=== PATIENT | male | born 1955 | race Caucasian/White ===

== ENCOUNTER → 2016-11-07 | Outpatient (CLI) | payer OTHER ==
[2016-11-07 11:47] LABS: CHOLESTEROL/HDL RATIO 2.8; PROSTATE SPECIFIC ANTIGEN 0.805 ng/ml (0.000-4.000)
== END | disposition home or self-care (01) ==
LOC: C.LABBC 08:34
PROVIDERS: ATTEND Family Medicine
DX: E78.5 Hyperlipidemia, unspecified (principal); N40.0 Benign prostatic hyperplasia without lower urinary tract symptoms; Z11.59 Encounter for screening for other viral diseases

== ENCOUNTER → 2016-11-13 | Outpatient (CLI) | payer OTHER | END | disposition home or self-care (01) | LOC: C.PATHSPEC 16:48 | PROVIDERS: ATTEND Dermatology | DX: L57.0 Actinic keratosis (principal) ==

== ENCOUNTER → 2017-02-06 | Outpatient (CLI) | payer OTHER | END | disposition home or self-care (01) | LOC: C.PATHSPEC 09:30 | PROVIDERS: ATTEND Dermatology | DX: D22.9 Melanocytic nevi, unspecified (principal) ==

== ENCOUNTER → 2017-05-23 | Outpatient (CLI) | payer OTHER | END | disposition home or self-care (01) | LOC: C.CPL 09:42 | PROVIDERS: ATTEND Orthopaedic Surgery | DX: Z01.810 Encounter for preprocedural cardiovascular examination (principal); S83.232A Complex tear of medial meniscus, current injury, left knee, initial encounter; X58.XXXA Exposure to other specified factors, initial encounter ==

== ENCOUNTER → 2017-10-07 | Outpatient (CLI) | payer OTHER | END | disposition home or self-care (01) | LOC: C.LAB 14:45 | PROVIDERS: ATTEND Family Medicine | DX: Z00.00 Encounter for general adult medical examination without abnormal findings (principal) ==

== ENCOUNTER 2024-10-14 08:12 | Inpatient (IN) ==
--- NOTE | 2024-10-08 13:10 | Anesthesiology Consultation ---
Date of Service October 08, 2024 Assessment & Plan (1) Encounter for pre-operative examination: - Infectious disease screening: Per assessment on 10/08/24- No known recent infectious disease contacts or current infectious disease symptoms. - Cardiology visit (12/29/23): "Paroxysmal AFib noted on outpatient monitor 2021. AFib burden appears to be low in general. Recent palpitations but very fleeting. Discussed repeating 30-day event monitor but he would like to hold off for now. Also discussed [employer] which may allow him to monitor this more regularly at home. He plans on looking into that. Tolerating beta- lashawn. Continue anticoagulation for stroke risk reduction.. Occasional brief palpitations described as skipped beats. Continue beta-lashawn. Etiology of the palpitations unclear as there were no reported symptoms while wearing previous monitor. Plan as above.. Syncope occurred in May of 2021 while fearing that his mother may pass away, standing outside of the hospital. May have been a vasovagal event. No recurrence. Monitor as above. Structurally normal heart based on [facility] echo report.. PVCs: Asymptomatic. No specific treatment necessary.. Follow-up in 1 year." - S/P colonoscopy (10/04/24): [facility] at [facility]. No issues noted per post-op anesthesia progress note. - General surgery visit (10/08/24): "..recently while undergoing a surveillance colonoscopy Dr. Granett was unable to get past the sigmoid colon due to a stricture. Subsequent CT scan also showed a [place]-colonic fistula and they also could not rule out an underlying mucosal neoplasm. He does occasionally have loose bowel movements but he is able to still have a solid normal bowel movement. Again his symptoms are relatively mild.. We had a long discussion today in the office regarding his options. The biggest concern is that we are unable to surveil his colon for colon masses and it is unclear on imaging if he could perhaps already have an underlying mucosal lesion. His symptoms are relatively mild at this point in time however I would still recommend that we resect his sigmoid colon which would also include the colocolonic fistula. We did discuss that because of this he would have a higher than normal chance of me needing to convert to an open procedure but we will start laparoscopically and make every attempt to perform the procedure minimally invasively.. We discussed he will need a preoperative colon prep as well as stop his Eliquis for 2 days prior.. We will proceed in the near future with laparoscopic/possible open sigmoid colectomy." Chart Review Chart Review: Acceptable Risk for Surgery (pending evaluation DOS) and Patient NOT seen in Pre Admission Testing History Surgery Operation Date: 10/14/24 09:45 Proposed Procedures p Laparoscopic, Possible Open, Sigmoid Colectomy - Brad Dsouza, DO Height/Weight Height: 6 ft 3 in Weight: 99.79 kg Allergies Allergy/AdvReac Type Severity Reaction Status Date / Time No Known Allergies Allergy Verified 10/14/24 08:32 Medications Home Medications Medication Instructions Recorded Confirmed Last Taken metoprolol succinate 25 mg 25 mg PO QAM #90 tabs 05/31/24 10/14/24 10/14/24 06:00 tablet,extended release 24 hr atorvastatin 20 mg tablet 20 mg PO HS 09/22/24 10/14/24 10/13/24 19:00 losartan 50 mg tablet 50 mg PO HS 09/22/24 10/14/24 10/13/24 19:00 apixaban 5 mg tablet (Eliquis) 5 mg PO BID #180 tabs 10/11/24 10/14/24 10/11/24 Past Medical History Medical History Actinic keratosis Atypical nevi BPH (benign prostatic hyperplasia) Hx Colonic fistula Diverticular disease Dyslipidemia Hypertension Paroxysmal atrial fibrillation Follows with [facility] cardio PVCs (premature ventricular contractions) Hx Tubular adenoma of colon Hx Past Family History Family History Father Heart disease Mother Dyslipidemia Brother Cerebral aneurysm Other No family history of adverse response to anesthesia Denies family history of Ovarian cancer Prostate cancer Myocardial infarction Breast cancer Colorectal cancer Past Surgical History Surgical History History of appendectomy History of arthroscopy left knee History of cataract surgery R/L History of colonoscopy (2024) History of total bilateral knee replacement Hx of tonsillectomy Hx of vasectomy S/P ablation of atrial fibrillation 15+ years ago S/P TURP 2014, 10/2023 Social History Smoking Status: Never smoker Do You Dip or Chew Tobacco: No (quit 2004; advised) Hx Alcohol Use: Yes Alcohol type: beer, wine and hard liquor alcohol intake frequency: 0-2 drinks per day Hx Substance Use: No substance use type: does not use Lab Results Anesthesia Preop Results Results Anesthesia Widget: WBC 5.37 K/ul (4.8-10.8) 10/08/24 Hgb 15.0 g/dl (14.0-18.0) 10/08/24 Hct 44.9 % (42.0-52.0) 10/08/24 Plt 205 K/uL (130-400) 10/08/24 Na 142 mmol/L (136-145) 10/08/24 K 4.1 mmol/L (3.5-5.1) 10/08/24 Cl 106 mmol/L (98-107) 10/08/24 CO2 30 mmol/L (21-32) 10/08/24 BUN 15 mg/dl (6-23) 10/08/24 Creat 0.90 mg/dl (0.6-1.4) 10/08/24 Glucose Level 107 mg/dl (70-99(Fasting)) H 10/08/24 Blood Type Pending 10/14/24 Antibody Screen Pending 10/14/24 Testing Electrocardiogram Date: 10/08/24 NSR at 80bpm. RBBB. No significant change compared to 05/23/2017 per flaker tender comparison. Chest X-Ray Date: 10/08/24 Findings: + NAD Echocardiogram Date: 11/08/21 LVEF 55 to 60%. No regional wall motion abnormality. Physiologic TR. Other Testing Abdomen/Pelvis CT Date: 10/05/24 IMPRESSION: 1. Colonic diverticulosis with a 5 cm segment of wall thickening within the mid sigmoid demonstrating mild adjacent pericolonic inflammatory stranding. Findings may represent acute diverticulitis versus an underlying mucosal lesion. Follow- up is needed. 2. There is a small colo-colonic fistula within the sigmoid, likely secondary to chronic diverticular disease. 3. Subcentimeter lymph nodes within the sigmoid mesocolon. Attention on follow- up recommended. 4. No bowel obstruction, pneumoperitoneum or fluid collection. 5. There are a few indeterminate solid pulmonary nodules within the left lung base measuring up to 7 mm. Nonemergent follow-up chest CT recommended to evaluate for additional pulmonary nodules and to determine appropriate follow- up. Chest CT Date: 4/24/25 IMPRESSION: 1. No acute findings. 2. A few pulmonary nodules, largest 8 mm. Follow-up chest CT suggested in 3-6 months.
[2024-10-14] MEDS ORDERED: ePHEDrine sulfate 50 MG/ML AMP IV PRN (08:39)
[2024-10-14] MEDS ORDERED: PROMETHAZINE HCL 6.25 MG in SODIUM CHLORIDE 0.9% 50 ML IV PRN (08:39)
[2024-10-14] MEDS ORDERED: HYDROmorphone INJ 2 MG/ML SYR/VIAL IV PRN (08:39)
[2024-10-14] MEDS ORDERED: ONDANSETRON INJ 2 MG/ML 2 ML VIAL IV PRN ×2 (08:39→14:25)
[2024-10-14] MEDS ORDERED: ATROPINE SULFATE 0.1 MG/ML 10ML SYR IV PRN (08:39)
--- NOTE | 2024-10-14 08:39 | Anesthesiology Consultation ---
Date of Service October 14, 2024 Assessment & Plan Chart Review Chart Review: Acceptable Risk for Surgery and Patient NOT seen in Pre Admission Testing Consults Requested none ASA ASA2 Proposed Anesthesia Anesthesia Type: General Risk / Benefits Reviewed With: PT / POA / Parent / Guardian, Accepts Plan and Informed Consent Obtained History Surgery Operation Date: 10/14/24 09:45 Proposed Procedures p Laparoscopic, Possible Open, Sigmoid Colectomy - Brad Dsouza, DO Height/Weight Height: 6 ft 3 in Weight: 99.79 kg Allergies Allergy/AdvReac Type Severity Reaction Status Date / Time No Known Allergies Allergy Verified 10/14/24 08:32 Medications Home Medications Medication Instructions Recorded Confirmed Last Taken metoprolol succinate 25 mg 25 mg PO QAM #90 tabs 05/31/24 10/14/24 10/14/24 06:00 tablet,extended release 24 hr atorvastatin 20 mg tablet 20 mg PO HS 09/22/24 10/14/24 10/13/24 19:00 losartan 50 mg tablet 50 mg PO HS 09/22/24 10/14/24 10/13/24 19:00 apixaban 5 mg tablet (Eliquis) 5 mg PO BID #180 tabs 10/11/24 10/14/24 10/11/24 Past Medical History Medical History Actinic keratosis Atypical nevi BPH (benign prostatic hyperplasia) Hx Colonic fistula Diverticular disease Dyslipidemia Hypertension Paroxysmal atrial fibrillation Follows with [facility] cardio PVCs (premature ventricular contractions) Hx Tubular adenoma of colon Hx Exercise / Class Metabolic Activity II 4-5 Yardwork/Stairs/Walk up hill Past Family History Family History Father Heart disease Mother Dyslipidemia Brother Cerebral aneurysm Other No family history of adverse response to anesthesia Denies family history of Ovarian cancer Prostate cancer Myocardial infarction Breast cancer Colorectal cancer Past Surgical History Surgical History History of appendectomy History of arthroscopy left knee History of cataract surgery R/L History of colonoscopy (2024) History of total bilateral knee replacement Hx of tonsillectomy Hx of vasectomy S/P ablation of atrial fibrillation 15+ years ago S/P TURP 2014, 10/2023 Past Anesthesia History No Hx of Anesthesia Complications and No Family Hx of Anesthesia Complications History of PONV No Hx of PONV and No Hx of Motion Sickness Social History Smoking Status: Never smoker Do You Dip or Chew Tobacco: No (quit 2004; advised) Hx Alcohol Use: Yes Alcohol type: beer, wine and hard liquor alcohol intake frequency: 0-2 drinks per day Hx Substance Use: No substance use type: does not use Physical Exam ENMT Mouth: no dentition abnormality Thyromental Distance: > or= 3.5 Finger Breadths Mallampati Class: II Neck normal visual inspection Respiratory normal respiratory effort Auscultation: lungs clear to auscultation bilaterally Cardiovascular Rate/Rhythm: regular rate and regular rhythm Psychiatric Orientation: alert Testing Electrocardiogram Date: 10/08/24 NSR at 80bpm. RBBB. No significant change compared to 05/23/2017 per customs agent comparison. Chest X-Ray Date: 10/08/24 Findings: + NAD Echocardiogram Date: 11/08/21 LVEF 55 to 60%. No regional wall motion abnormality. Physiologic TR. Other Testing Abdomen/Pelvis CT Date: 10/05/24 IMPRESSION: 1. Colonic diverticulosis with a 5 cm segment of wall thickening within the mid sigmoid demonstrating mild adjacent pericolonic inflammatory stranding. Findings may represent acute diverticulitis versus an underlying mucosal lesion. Follow- up is needed. 2. There is a small colo-colonic fistula within the sigmoid, likely secondary to chronic diverticular disease. 3. Subcentimeter lymph nodes within the sigmoid mesocolon. Attention on follow- up recommended. 4. No bowel obstruction, pneumoperitoneum or fluid collection. 5. There are a few indeterminate solid pulmonary nodules within the left lung base measuring up to 7 mm. Nonemergent follow-up chest CT recommended to evaluate for additional pulmonary nodules and to determine appropriate follow- up. Chest CT Date: 10/07/24 IMPRESSION: 1. No acute findings. 2. A few pulmonary nodules, largest 8 mm. Follow-up chest CT suggested in 3-6 months.
[2024-10-14] MEDS ORDERED: DEXAMETHASONE SOD INJ 4 MG/ML VIAL ONE (09:03)
[2024-10-14] MEDS ORDERED: PROPOFOL IV EMULSION 10 MG/ML 20 ML VIAL IV ONE (09:03)
[2024-10-14] MEDS ORDERED: LIDOCAINE 2% 2 ML VIAL/AMP(20MG/ML) INFIL ONE (09:03)
[2024-10-14] MEDS ORDERED: ONDANSETRON INJ 2 MG/ML 2 ML VIAL ONE (09:03)
[2024-10-14] MEDS ORDERED: MIDAZOLAM HCL 1 MG/ML 2ML VIAL ONE (09:04)
[2024-10-14] MEDS: LR 15ML/HR IV SCH (09:05)
[2024-10-14] MEDS ORDERED: ROCURONIUM BROMIDE 10 MG/ML 5 ML VIAL IV ONE ×2 (09:05→11:19)
[2024-10-14] MEDS ORDERED: SODIUM CHLORIDE 0.9% PF INJ 10 ML VIAL ONE (09:10)
[2024-10-14] MEDS ORDERED: HYDROmorphone INJ 2 MG/ML SYR/VIAL ONE (09:10)
[2024-10-14] MEDS ORDERED: LARYING-O-JET KIT (LTA) ONE (09:10)
--- NOTE | 2024-10-14 09:45 | History & Physical Bridge Note ---
Date of Service October 14, 2024 History & Physical Bridge Note I have examined the patient, reviewed the History & Physical and in the interval since the performance of the History & Physical I have noted the following changes of clinical significance: no changes noted
[2024-10-14] MEDS ORDERED: DexMEDEtomidine HCL IV 100 MCG/ML VIAL IV ONE (09:48)
[2024-10-14] MEDS: ceFAZolin 2000MG 2,000 MG/15 ML SYR IV SCH ×2 (10:21→17:28)
[2024-10-14] MEDS ORDERED: PHENYLEPHRINE 100MCG/ML 5ML SYR ONE (10:40)
[2024-10-14] MEDS ORDERED: SUGAMMADEX SODIUM 200 MG/2 ML VIAL IV ONE (11:07)
[2024-10-14] MEDS: BUPIVACAINE/EPINEPHRINE 0.5% MPF 1:200,000 30 ML VIAL ONE (12:39)
--- NOTE | 2024-10-14 13:05 | Operative Report ---
[facility] Post Operative Report Pre & Post Diagnosis Operation Date: 10/14/24 09:45 Pre-Op Diagnosis: Diverticular disease, sigmoid stricture, colocolonic fistula Post-Op Diagnosis: Diverticular disease, sigmoid stricture, colocolonic fistula I identified the patient and participated in the time-out.: Yes Procedure Operation Date: 10/14/24 09:45 Actual Procedures p Laparoscopic Sigmoid Colectomy(Not Applicable) - Brad Dsouza DO Surgeon Brad Dsouza DO [employer] Maker janice Jones Estimated Blood Loss 100 Findings Consistent with Post-Op Diagnosis Specimens sigmoid colon Description of Procedure After informed consent was obtained the patient was taken to the operating room and placed in supine position. After successful intubation the patient was placed in the low lithotomy position. A Garcia catheter was placed sterilely. The arms were tucked. The abdomen was shaved and sterilely prepped and draped in usual fashion. I began with a supraumbilical incision with 11 blade scalpel. This was carried down through the soft tissue using cautery. Anterior fascia was opened using cautery and two #0 Vicryl stay sutures were placed. Peritoneum was elevated using hemostats and incised under direct vision using Metzenbaum scissor. Finger sweep was performed. A 12 mm Ingram trocar was placed and the abdomen was insufflated to 18 mmHg. Laparoscope was inserted and the abdomen examined 360 degrees. A right lower quadrant 12 mm port right mid abdominal 5 mm port and a left lower quadrant 5 mm port were all placed under direct vision. The patient was placed in the Trendelenburg position and slightly airplaned to the right. I began by mobilizing the left and sigmoid colon. The site of fistula/stricture was obvious. It was in the mid sigmoid. I was able to open up the white line of Toldt using the harmonic scalpel. We were able to identify the left ureter early on in the procedure to keep it out of harm's way. After coming up along the white line of Toldt to the spleen we carried it down over the pelvic brim to the retroperitoneal reflection. I was then able to make a window in the mesentery of the rectosigmoid. This was several inches below the inflammatory mass. We divided the rectosigmoid using a TRACEY purple cartridge linear stapler. We then used traction and harmonic scalpel to take down the mesentery of the sigmoid colon. We carried this up until we were several inches above the inflammatory mass. We then made a left lower quadrant horizontal incision and carried this down to fascia which we opened up as well. We were then able to deliver the stapled end of the colon after toweling off the wound. We used bowel clamps to clamp off the colon proximal and distal to the inf lammatory mass and divided it with a Metzenbaum scissor. I then used 2-0 silk to create a pursestring. We used sizers to estimate the lumen size to be 28 mm. The anvil of a 28 mm circular stapler was placed into the colon and it was secured using the pursestring. There appeared to be good blood supply and no evidence of ischemia. We then placed the anvil back into the abdominal cavity. At this point we changed our gloves. We closed the fascia of this incision using 0 PDS in running fashion. We then re-insufflated the abdomen. We suctioned /irrigated out the pelvis. The anvil laid nicely over the pelvic brim with no tension. We then used sizers to come into the rectal stump. This was followed by the handle of the circular stapler. We deployed the spike well anterior to the staple line. We connected the anvil to the handle and secured them together and fired creating a functional end-to-end anastomosis. Both donuts were intact. We stood the patient up and submerged the anastomosis in water. We insufflated the rectum with a rigid proctoscope. It was completely airtight with no evidence of a leak. We irrigated 1 final time. The anastomosis was intact again with no evidence of ischemia and no tension. A quick look around the abdomen showed no other abnormalities. A 10 flat Jonah- Koch drain was placed into the pelvis and brought out through one of the trocar sites secured to the skin using 2-0 silk. The remainder of the trocars were removed. All the wounds were thoroughly irrigated. The larger incision was closed with 3-0 Vicryl for deep layers and 4 Monocryl for skin. This was injected with Marcaine for postoperative analgesia and covered with benzoin Steri-Strips gauze and tape. The smaller incisions were all injected with Marcaine as well. They were closed with 4-0 Monocryl and Dermabond glue. The patient was awakened extubated and transferred to recovery in stable condition. My nurse practitioner was present for the entire case and was instrumental in gaining access to the abdomen, running the camera and assisting with the dissection, assisting with the anastomosis wound closure and dressing placement. I attest to the content of the Intraoperative Record and any orders documented therein. Any exceptions are noted below.
[2024-10-14] MEDS: fentaNYL citrate PF 100 MCG/2 ML VIAL IV PRN (13:13)
--- NOTE | 2024-10-14 13:55 | Anesthesiology Progress Note ---
Date of Service October 14, 2024 Anesthesia Post Procedure Vital Signs Vital Signs: Temp Pulse Resp BP Pulse Ox O2 Del Method O2 Flow Rate 10/14/24 13:40 74 12 117/67 93 Room Air 0 10/14/24 13:30 68 12 118/68 95 Room Air 0 10/14/24 13:20 69 12 117/69 100 Oxymask 4 10/14/24 13:10 65 17 119/72 98 Oxymask 4 10/14/24 13:01 36.3 C L 68 13 130/76 98 Oxymask 8 Pain Intensity Abdomen: Pain Intensity: 4 Transfer of Care Handoff Completed per policy Notes Mental Status: alert / awake / arousable Patient Amnestic to Procedure: Yes Nausea / Vomiting: adequately controlled Pain: adequately controlled Airway Patency, RR, SpO2: stable & adequate BP & HR: stable & adequate Hydration State: stable & adequate Anesthetic Complications: no major complications apparent and Pt Satisfied with anesthetic care
[2024-10-14] MEDS ORDERED: HYDROmorphone INJ 0.5 MG/0.5 ML SYR IV PRN ×2 (14:25)
[2024-10-14] MEDS ORDERED: PROMETHAZINE 12.5 MG/50.5 ML BAG IV PRN (14:25)
[2024-10-14] MEDS: LACTATED RINGER'S 1,000 ML IV SCH (14:58)
[2024-10-14] MEDS: ACETAMINOPHEN 1,000 MG/100 ML VIAL IV PRN (16:52)
[2024-10-15 06:17] LABS: Basophils # (auto) 0.01 K/uL (0.00-0.20); Basophils % (auto) 0.1 %; Hematocrit (blood only) 38.4 % (42.0-52.0); Hemoglobin 12.9 g/dl (14.0-18.0); Immature Granulocytes # (auto) 0.02 K/uL (0.01-0.20); Immature Granulocytes % (auto) 0.2 %; Lymphocytes # (auto) 0.85 K/uL (1.20-3.40); Lymphocytes % (auto) 10.5 %; Mean Corpuscular Hemoglobin 30.3 pg (25.0-34.0); Mean Corpuscular Hgb Conc 33.6 g/dL (32.0-36.0); Mean Corpuscular Volume 90.1 fL (80.0-100.0); Monocytes # (auto) 0.55 K/uL (0.11-0.59); Monocytes % (auto) 6.8 %; Neutrophils % (auto) 82.4 %; Platelet Count 189 K/uL (130-400); RDW Coefficient of Variation 13.6 % (11.5-14.5); RDW Standard Deviation 44.7 fL (36.4-46.3); Red Blood Count 4.26 M/uL (4.70-6.10); White Blood Count 8.13 K/ul (4.8-10.8)
[2024-10-15 06:37] LABS: Albumin Globulin Ratio 1.4 (0.9-2); Albumin Level 3.4 gm/dl (3.4-5.0); BUN Creatinine Ratio 16.5 (10-20); Bilirubin,Total 0.5 mg/dl (0.2-1.0); Calcium 8.8 mg/dl (8.6-10.3); Creatinine Clr Calc Pharmacy 102.5 ml/min; Globulin 2.5 gm/dl (2.5-4.0); Potassium 4.1 mmol/L (3.5-5.1); Total Protein 5.9 gm/dl (6.0-8.3)
--- NOTE | 2024-10-15 09:02 | Surgery Progress Note ---
Date of Service October 15, 2024 Assessment & Plan (1) H/O colectomy: Plan: Laparoscopic Sigmoid Colectomy 10/14/24 Dr Dsouza pt doing well pod 1 remove gonzalez cath wbc wnl , h/h stable, VSS [place] sanguineous if tolerating clear liquids and taking adequate amounts with n/v may d/c IV fluids +Flatus , waiting on bowel function prior to advancing diet OOB ambulate as tolerated pt seen and examined with Dr Dsouza As above. Doing well. Clears only today. Dr. James covering for the weekend. Admission and Anticipated Discharge Date Admission Date: October 14, 2024 Subjective Pt standing up at bedside reports pain tolerable with Tylenol +flatus , no bm c/o of gonzalez cath nonfunctioning overnight Review of Systems Constitutional: no fever and no chills Respiratory: no dyspnea Cardiovascular: no chest pain Gastrointestinal: + abdominal pain; no nausea and no vomit ing Musculoskeletal: no muscle weakness Physical Exam Constitutional: cooperative and comfortable; no acute distress Respiratory: normal respiratory effort and able to speak in complete sentences; no respiratory distress Cardiovascular: Rate/Rhythm: regular rate Gastrointestinal (Abdomen): Inspection/Auscultation: + abdominal surgical incision and + abdominal surgical drain present Results & Data Vital Signs (Past 12 Hours) Vital Signs Temp Pulse Pulse Resp BP Pulse Ox O2 Del Method 10/15/24 07:36 98.2 F 88 20 158/91 H 94 Room Air 10/15/24 04:00 98.4 F 87 18 142/80 H 95 Room Air 10/14/24 23:30 98.6 F 93 H 18 127/79 95 Room Air 10/14/24 21:44 93 H Results CBC w Diff Results: RBC 4.26 M/uL (4.70-6.10) L 10/15/24 WBC 8.13 K/ul (4.8-10.8) 10/15/24 Hgb 12.9 g/dl (14.0-18.0) L 10/15/24 Hct 38.4 % (42.0-52.0) L 10/15/24 MCV 90.1 fL (80.0-100.0) 10/15/24 MCH 30.3 pg (25.0-34.0) 10/15/24 MCHC 33.6 g/dL (32.0-36.0) 10/15/24 RDW Standard Deviation 44.7 fL (36.4-46.3) 10/15/24 RDW Coefficient of Variation 13.6 % (11.5-14.5) 10/15/24 Plt Count 189 K/uL (130-400) 10/15/24 MPV 10.0 fL (9.4-12.4) 10/15/24 Neutrophils (%) (Auto) 82.4 % 10/15/24 Lymphocytes (%) (Auto) 10.5 % 10/15/24 Monocytes # (Auto) 0.55 K/uL (0.11-0.59) 10/15/24 Eosinophils # (Auto) 0.00 K/uL (0.00-0.50) 10/15/24 Immature Granulocyte % (Auto) 0.2 % 10/15/24 Neutrophils # (Auto) 6.70 K/uL (1.40-6.50) H 10/15/24 Lymphocytes # (Auto) 0.85 K/uL (1.20-3.40) L 10/15/24 Monocytes # (Auto) 0.55 K/uL (0.11-0.59) 10/15/24 Eosinophils # (Auto) 0.00 K/uL (0.00-0.50) 10/15/24 Basophils # (Auto) 0.01 K/uL (0.00-0.20) 10/15/24 Immature Granulocyte # (Auto) 0.02 K/uL (0.01-0.20) 5 PG Care Time/CCT Total # of Minutes Spent Total Time Spent with Patient: Total time spent is greater than 50% in coordination of care (as documented) at patient's floor/unit and/or counseling patient: Coding Level of Care Code 07809 Post Operative Follow-Up Diagnoses H/O colectomy Z90.49
[2024-10-15] MEDS: METOPROLOL SUCC 25MG EXT REL TAB PO SCH (10:26)
[2024-10-15 11:38] VITALS: RESP 18
[2024-10-15] MEDS: LOSARTAN POTASSIUM 50 MG TAB PO SCH (20:34)
--- NOTE | 2024-10-16 05:50 | Surgery Progress Note ---
Date of Service October 16, 2024 Assessment & Plan (1) H/O colectomy: Plan: Patient is s/p Laparoscopic Sigmoid Colectomy 10/14/24 Dr. Dsouza -Patient doing well, tolerating clears without issues. Passing gas and denies N/V. Will continue clears for this morning and possible advancement to full liquids later today. -AM labs pending. VSS and afebrile -JIAN drain sanguineous output -OOB as tolerated and encourage IS while awake -Will start Lovenox for chemical DVT ppx today Admission and Anticipated Discharge Date Admission Date: October 14, 2024 Supervising Physician Co-Signing Physician Notes Patient seen and examined, labs reviewed, agree with above. POD #2 laparoscopic sigmoidectomy for diverticular stricture. Passing flatus and had a small bowel movement. Tolerated clears. Abdomen soft, incisions without infection. JIAN serosanguineous. Advance to full's for lunch, may advance to low fiber for dinner. Lovenox. Ambulation, out of bed to chair, I-S. Possible discharge in next day or 2 Subjective Patient doing well this morning Tolerating clears without issues of abdominal pain. Denies N/V. Passing gas however no BM Pain tolerable with Tylenol JIAN in place with 95cc serosang output recorded Physical Exam Constitutional: WD/WN, vitals as above Respiratory: normal respiratory effort, lungs clear to auscultation Cardiovascular: Rate/Rhythm: regular rate Gastrointestinal (Abdomen): Abdomen soft, nondistended, appropriate TTP over surgical sites. Incisions are c/d/i without overlying signs of infection JIAN drain in place with serosanguineous output Skin: no rashes, warm and dry Results & Data Vital Signs (Past 12 Hours) Vital Signs Temp Pulse Pulse Resp BP Pulse Ox O2 Del Method 10/16/24 02:58 36.4 C L 72 18 157/78 H 93 Room Air 10/15/24 22:29 36.8 C 71 18 144/86 H 95 Room Air 10/15/24 21:44 69 10/15/24 19:29 36.6 C 73 18 152/85 H 96 Room Air PG Care Time/CCT Total # of Minutes Spent Total Time Spent with Patient: Total time spent is greater than 50% in coordination of care (as documented) at patient's floor/unit and/or counseling patient: Coding [place] [address] Post Operative Follow-Up Patient Type Established Medical Decision Making Straight Forward Diagnoses H/O colectomy Z90.49
[2024-10-16 07:36] LABS: Basophils # (auto) 0.02 K/uL (0.00-0.20); Basophils % (auto) 0.3 %; Eosinophils # (auto) 0.03 K/uL (0.00-0.50); Eosinophils % (auto) 0.4 %; Hematocrit (blood only) 42.6 % (42.0-52.0); Hemoglobin 14.1 g/dl (14.0-18.0); Immature Granulocytes # (auto) 0.03 K/uL (0.01-0.20); Immature Granulocytes % (auto) 0.4 %; Lymphocytes # (auto) 1.15 K/uL (1.20-3.40); Lymphocytes % (auto) 15.2 %; Mean Corpuscular Hemoglobin 30.4 pg (25.0-34.0); Mean Corpuscular Hgb Conc 33.1 g/dL (32.0-36.0); Mean Corpuscular Volume 91.8 fL (80.0-100.0); Mean Platelet Volume 10.3 fL (9.4-12.4); Monocytes # (auto) 0.45 K/uL (0.11-0.59); Monocytes % (auto) 5.9 %; Neutrophils % (auto) 77.8 %; Platelet Count 188 K/uL (130-400); RDW Coefficient of Variation 13.8 % (11.5-14.5); Red Blood Count 4.64 M/uL (4.70-6.10); White Blood Count 7.58 K/ul (4.8-10.8)
[2024-10-16 07:51] LABS: Albumin Globulin Ratio 1.4 (0.9-2); Albumin Level 3.8 gm/dl (3.4-5.0); BUN Creatinine Ratio 10.4 (10-20); Bilirubin,Total 0.6 mg/dl (0.2-1.0); Calcium 9.2 mg/dl (8.6-10.3); Creatinine Clr Calc Pharmacy 91.8 ml/min; Globulin 2.8 gm/dl (2.5-4.0); Potassium 3.7 mmol/L (3.5-5.1); Total Protein 6.6 gm/dl (6.0-8.3)
[2024-10-16] MEDS: ENOXAPARIN INJ 40 MG/0.4 ML SYR SQ SCH (10:22)
[2024-10-17 06:32] LABS: Basophils # (auto) 0.04 K/uL (0.00-0.20); Basophils % (auto) 0.6 %; Eosinophils # (auto) 0.08 K/uL (0.00-0.50); Eosinophils % (auto) 1.3 %; Hematocrit (blood only) 38.2 % (42.0-52.0); Immature Granulocytes # (auto) 0.03 K/uL (0.01-0.20); Immature Granulocytes % (auto) 0.5 %; Lymphocytes # (auto) 0.96 K/uL (1.20-3.40); Lymphocytes % (auto) 15.4 %; Mean Corpuscular Hemoglobin 30.7 pg (25.0-34.0); Mean Corpuscular Volume 90.1 fL (80.0-100.0); Mean Platelet Volume 10.1 fL (9.4-12.4); Monocytes # (auto) 0.52 K/uL (0.11-0.59); Monocytes % (auto) 8.3 %; Neutrophils # (auto) 4.61 K/uL (1.40-6.50); Neutrophils % (auto) 73.9 %; Platelet Count 155 K/uL (130-400); RDW Coefficient of Variation 13.6 % (11.5-14.5); RDW Standard Deviation 44.8 fL (36.4-46.3); Red Blood Count 4.24 M/uL (4.70-6.10); White Blood Count 6.24 K/ul (4.8-10.8)
[2024-10-17 06:53] LABS: Albumin Globulin Ratio 1.3 (0.9-2); Albumin Level 3.4 gm/dl (3.4-5.0); BUN Creatinine Ratio 12.3 (10-20); Bilirubin,Total 0.5 mg/dl (0.2-1.0); Calcium 8.9 mg/dl (8.6-10.3); Creatinine Clr Calc Pharmacy 110.9 ml/min; Globulin 2.7 gm/dl (2.5-4.0); Potassium 3.8 mmol/L (3.5-5.1); Total Protein 6.1 gm/dl (6.0-8.3)
[2024-10-17 07:05] VITALS: TEMP 97.3; O2SAT 97
--- NOTE | 2024-10-17 09:50 | Surgery Progress Note ---
Date of Service October 17, 2024 Assessment & Plan (1) H/O colectomy: Plan: POD #3 laparoscopic sigmoidectomy, tolerating diet and good return of bowel function, pain controlled Discharge to home Drain removal prior to discharge Low fiber diet for 4 to 6 weeks Wound care instructions, activity restrictions, and return precautions given Follow-up with Dr. Dsouza as scheduled Call general surgery clinic with questions or concerns Admission and Anticipated Discharge Date Admission Date: October 14, 2024 Subjective POD #3 laparoscopic sigmoidectomy, tolerating low fiber diet, passing gas and having loose bowel movement. Pain controlled Physical Exam Constitutional: WD/WN, vitals as above Respiratory: normal respiratory effort, lungs clear to auscultation Cardiovascular: RRR, no murmur, no edema Gastrointestinal (Abdomen): normal bowel sounds, soft, nontender, no hepatosplenomegaly Inspection/Auscultation: + abdominal surgical incision (Healing well no infection) and + abdominal surgical drain present (JIAN serosanguineous) Results & Data Vital Signs (Past 12 Hours) Vital Signs Temp Pulse Pulse Resp BP BP Pulse Ox 10/17/24 07:52 66 10/17/24 07:04 36.3 C L 82 18 121/73 97 10/17/24 02:47 36.5 C 72 18 129/77 94 10/16/24 22:13 110 H 10/16/24 22:11 36.8 C 74 18 139/82 96 O2 Del Method 10/17/24 07:52 10/17/24 07:04 Room Air 10/17/24 02:47 Room Air 10/16/24 22:13 10/16/24 22:11 Room Air Laboratory Results Laboratory Results - last 24 hr 10/17/24 06:05 WBC 6.24 RBC 4.24 L Hgb 13.0 L Hct 38.2 L MCV 90.1 MCH 30.7 MCHC 34.0 RDW Std Deviation 44.8 RDW Coeff of Baldomero 13.6 Plt Count 155 MPV 10.1 Immature Gran % (Auto) 0.5 Neut % (Auto) 73.9 Lymph % (Auto) 15.4 Karnes % (Auto) 8.3 Eos % (Auto) 1.3 Baso % (Auto) 0.6 Neut # (Auto) 4.61 Lymph # (Auto) 0.96 L Karnes # (Auto) 0.52 Eos # (Auto) 0.08 Baso # (Auto) 0.04 Immature Gran # (Auto) 0.03 Sodium 141 Potassium 3.8 Chloride 107 Carbon Dioxide 29 Anion Gap 5 BUN 9 Creatinine 0.73 Est Cr Clr Drug Dosing 110.9 eGFR 97.27 BUN/Creatinine Ratio 12.3 Glucose 96 Calcium 8.9 Total Bilirubin 0.5 AST 15 ALT 8 Alkaline Phosphatase 80 Total Protein 6.1 Albumin 3.4 Globulin 2.7 Albumin/Globulin Ratio 1.3 PG Care Time/CCT Total # of Minutes Spent Total Time Spent with Patient: Total time spent is greater than 50% in coordination of care (as documented) at patient's floor/unit and/or counseling patient: Coding Level of Care Code 20394 Post Operative Follow-Up Diagnoses H/O colectomy Z90.49
[2024-10-17 10:58] VITALS: BP 129/77; PULSE 69
== END 2024-10-17 12:46 | disposition home or self-care (01) | DRG 331 ==
LOC: ASU 08:12 → 2N 10:18